=== PATIENT | male | born 1940 | race Two or more races ===

== ENCOUNTER 2023-04-19 15:34 | Inpatient (IN) | payer MEDICARE, OTHER ==
[~2023-04-19] VITALS: Ht 157.5 cm; Wt 72.1 kg
[2023-04-19] MEDS ORDERED: GABA100C PO (15:57)
[2023-04-19] MEDS ORDERED: ATOR10TA PO (15:57)
[2023-04-19] MEDS ORDERED: MEMA10TA PO (15:57)
[2023-04-19] MEDS ORDERED: NORT10CA PO (15:57)
[2023-04-19] MEDS ORDERED: BRIM10DR6 EACHEYE (15:57)
[2023-04-19] MEDS ORDERED: LOSA25TA27 PO (15:57)
[2023-04-19] MEDS ORDERED: PROP40TA7 PO (15:57)
[2023-04-19] MEDS ORDERED: METF-440 PO (15:57)
[2023-04-19 16:20] LABS: BASOPHILS # (AUTO) 0.1 K/UL (0.0-0.2); BASOPHILS % (AUTO) 2.2 % (0.0-2.0); DIFFERENTIAL COMMENT 1; EOSINOPHILS # (AUTO) 0.2 K/uL (0.0-0.7); EOSINOPHILS % (AUTO) 2.8 % (0.0-7.0); HEMATOCRIT 34.8 % (36.7-47.1); HEMOGLOBIN 11.3 g/dL (12.5-16.3); LYMPHOCYTES % (AUTO) 15.4 % (20.5-51.5); MEAN CORPUSCULAR HEMOGLOBIN 29.8 uug (23.8-33.4); MEAN CORPUSCULAR HGB CONC 33 g/dL (32.5-36.3); MEAN CORPUSCULAR VOLUME 91.8 fL (73.0-96.2); MONOCYTES # (AUTO) 0.5 K/uL (0.1-1.30); MONOCYTES % (AUTO) 8.6 % (0.0-11.0); NEUTROPHILS # (AUTO) 4.4 K/uL (1.8-8.9); PLATELET COUNT (AUTO) 193 K/uL (152-348); RED BLOOD CELL COUNT(AUTO) 3.79 MIL/uL (4.06-5.63); RED CELL DISTRIBUTION WIDTH 14.6 % (12.1-16.2); WHITE BLOOD COUNT (AUTO) 6.2 K/uL (3.6-10.2)
[2023-04-19 16:29] LABS: CALCIUM 8.2 mg/dL (8.5-10.1); CARBON DIOXIDE 27 mmol/L (21-32); CHLORIDE 109 mmol/L (98-107); CREATININE 1.3 mg/dL (0.6-1.3); GLUCOSE 150 mg/dL (74-106); POTASSIUM 4.2 mmol/L (3.5-5.1); SODIUM SERUM 139 mmol/L (136-145); UREA NITROGEN, BLOOD 25 mg/dL (7-18)
[2023-04-19 16:38] LABS: ALANINE AMINOTRANSFERASE 18 U/L (16-63); ALBUMIN 3.1 g/dL (3.4-5.0); ALKALINE PHOSPHATASE 61 U/L (50-136); ASPARTATE AMINOTRANSFERASE 12 U/L (15-37); BILIRUBIN,DIRECT 0.1 mg/dL (0.0-0.2); BILIRUBIN,TOTAL 0.3 mg/dL (0.2-1.0); TOTAL PROTEIN, SERUM 5.8 g/dL (6.4-8.2)
[2023-04-19] MEDS ORDERED: ESCI10TA PO (16:53)
[2023-04-19] MEDS ORDERED: SEMA1PEN SQ (16:53)
[2023-04-19] MEDS ORDERED: LATA7.5D EACHEYE (16:53)
[2023-04-19] MEDS ORDERED: ASPI81TA31 PO (16:53)
[2023-04-19] MEDS ORDERED: DORZ1DRO7 EACHEYE (16:53)
[2023-04-19 18:17] LABS: *BILIRUBIN,URIN NEGATIVE (NEGATIVE); *BLOOD, URINE NEGATIVE (NEGATIVE); *CLARITY,URINE CLEAR (CLEAR); *COLOR,URINE YELLOW (YELLOW); *KETONES,URINE TRACE (NEGATIVE); *PROTEIN,URINE NEGATIVE (NEGATIVE); *UROBILINOGEN,URINE 0.2 E.U./dl (NORMAL); LEUKOCYTE ESTERASE ,URINE NEGATIVE (NEGATIVE); NITRITE, URINE NEGATIVE (NEGATIVE); UGLUCOSE NEGATIVE (NEGATIVE)
[2023-04-19 18:40] LABS: RBC,URINE 0-3 /HPF (0-3)
[2023-04-19 18:41] LABS: BACTERIA,URINE FEW /HPF (NONE SEEN); SQUAMOUS EPITHELIAL CELL,UR FEW /HPF (NONE SEEN); WBC,URINE NONE SEEN /HPF (0-3)
[2023-04-19] MEDS ORDERED: REMEDY ESSENTIAL ZINC PASTE 113 GM TP PRN (19:45)
[2023-04-19] MEDS ORDERED: ACETAMINOPHEN 325 MG TABLET PO PRN (19:45)
[2023-04-19] MEDS ORDERED: IV NS 1000 ML 1,000 ML IV PRN (19:45)
[2023-04-19] MEDS ORDERED: ONDANSETRON 4 MG/2 ML VIAL IV PRN (19:45)
[2023-04-19 20:40] VITALS: BP 159/70; TEMP 98.3; O2SAT 99
[2023-04-19] MEDS ORDERED: MECLIZINE HCL 25 MG TABLET PO PRN (21:45)
[2023-04-19] MEDS: NORTRIPTYLINE HCL 25 MG CAPSULE PO SCH (22:39)
[2023-04-19] MEDS: ATORVASTATIN 40 MG TABLET PO SCH (22:39)
[2023-04-19] MEDS: PROPRANOLOL HCL 20 MG TABLET PO SCH (22:40)
[2023-04-19] MEDS: ENOXAPARIN SODIUM 40 MG/0.4 ML DISP.SYRIN SQ SCH (22:43)
[2023-04-20 04:00] VITALS: BP 155/68; TEMP 98.2; O2SAT 99
[2023-04-20] MEDS: PANTOPRAZOLE SODIUM 40 MG TABLET.DR PO SCH (06:12)
[2023-04-20 06:16] LABS: BASOPHILS % (AUTO) 0.6 % (0.0-2.0); EOSINOPHILS # (AUTO) 0.2 K/uL (0.0-0.7); EOSINOPHILS % (AUTO) 2.3 % (0.0-7.0); HEMATOCRIT 37.9 % (36.7-47.1); HEMOGLOBIN 12.7 g/dL (12.5-16.3); LYMPHOCYTES # (AUTO) 1.1 K/uL (0.8-4.8); MEAN CORPUSCULAR HEMOGLOBIN 30.1 uug (23.8-33.4); MEAN CORPUSCULAR HGB CONC 34 g/dL (32.5-36.3); MEAN CORPUSCULAR VOLUME 89.8 fL (73.0-96.2); MONOCYTES # (AUTO) 0.4 K/uL (0.1-1.30); MONOCYTES % (AUTO) 5.2 % (0.0-11.0); NEUTROPHILS # (AUTO) 6.6 K/uL (1.8-8.9); NEUTROPHILS % (AUTO) 78.9 % (38.5-71.5); PLATELET COUNT (AUTO) 119 K/uL (152-348); RED BLOOD CELL COUNT(AUTO) 4.22 MIL/uL (4.06-5.63); RED CELL DISTRIBUTION WIDTH 14.4 % (12.1-16.2); WHITE BLOOD COUNT (AUTO) 8.4 K/uL (3.6-10.2)
[2023-04-20 06:21] LABS: DIFFERENTIAL COMMENT 1
[2023-04-20 06:40] LABS: THYROID STIMULATING HORMONE 2.064 mIU/mL (0.358-3.740)
[2023-04-20 07:04] LABS: IRON, SERUM 39 ug/dL (50-175)
[2023-04-20 07:05] LABS: CALCIUM 8.8 mg/dL (8.5-10.1); CARBON DIOXIDE 27 mmol/L (21-32); CHLORIDE 108 mmol/L (98-107); CHOLESTEROL 163 mg/dL (<200); CREATININE 0.9 mg/dL (0.6-1.3); FERRITIN 44 ng/mL (26-388); GLUCOSE 128 mg/dL (74-106); HDL CHOLESTEROL 68 mg/dL (40-60); MAGNESIUM 1.5 mg/dL (1.8-2.4); PHOSPHOROUS 2.7 mg/dL (2.5-4.9); POTASSIUM 4.3 mmol/L (3.5-5.1); SODIUM SERUM 136 mmol/L (136-145); TRIGLYCERIDES 78 MG/DL (30-150); UREA NITROGEN, BLOOD 19 mg/dL (7-18)
[2023-04-20] MEDS: BRIMONIDINE 0.2% OPHT DROP 10 ML BOTTLE EACHEYE SCH ×3 (09:00→17:00)
[2023-04-20] MEDS ORDERED: SWABABLE VALVE TRANSFER SET EA MC ONE (09:27)
[2023-04-20] MEDS ORDERED: IV NORMAL SALINE 250 ML IV ONE (09:27)
[2023-04-20] MEDS ORDERED: IOHEXOL 350 100 ML INFUS..BTL ONE (09:27)
[2023-04-20 11:05] VITALS: BP 140/74; TEMP 97.6; O2SAT 100
[2023-04-20] MEDS: ESCITALOPRAM OXALATE 10 MG TABLET PO SCH (11:27)
[2023-04-20] MEDS: MEMANTINE HCL 10 MG TABLET PO SCH (11:27)
[2023-04-20] MEDS: ASPIRIN EC 81 MG TABLET.DR PO SCH (11:28)
[2023-04-20] MEDS: PROPRANOLOL HCL 20 MG TABLET PO SCH ×2 (11:28→21:18)
[2023-04-20] MEDS: MAGNESIUM SULFATE/D5W 100 ML IV SCH ×2 (11:30→12:44)
[2023-04-20] MEDS: GABAPENTIN 300 MG CAPSULE PO SCH ×2 (13:22→19:20)
[2023-04-20 15:09] VITALS: BP 144/61; TEMP 98.2; O2SAT 94
[2023-04-20] MEDS ORDERED: LATA2.5D15 EACHEYE (18:22)
[2023-04-20] MEDS ORDERED: DORZ1DRO7 EACHEYE (18:22)
[2023-04-20 20:42] VITALS: BP 118/62; TEMP 98.3; O2SAT 96
[2023-04-20] MEDS: NORTRIPTYLINE HCL 25 MG CAPSULE PO SCH (21:17)
[2023-04-20] MEDS: ATORVASTATIN 40 MG TABLET PO SCH (21:17)
[2023-04-20] MEDS: LATANOPROST OPHT DROP 2.5 ML BOTTLE EACHEYE SCH (21:18)
[2023-04-20] MEDS: DORZOLAMIDE/TIMOLOL OPHT DROP 10 ML BOTTLE EACHEYE SCH (21:19)
[2023-04-20] MEDS: ENOXAPARIN SODIUM 40 MG/0.4 ML DISP.SYRIN SQ SCH (21:29)
[2023-04-21 00:18] VITALS: BP 132/64; TEMP 98.4; O2SAT 96
[2023-04-21 04:55] VITALS: BP 162/84; TEMP 98.3; O2SAT 98
[2023-04-21] MEDS: PANTOPRAZOLE SODIUM 40 MG TABLET.DR PO SCH (06:26)
[2023-04-21 06:41] LABS: BASOPHILS % (AUTO) 0.7 % (0.0-2.0); EOSINOPHILS # (AUTO) 0.3 K/uL (0.0-0.7); EOSINOPHILS % (AUTO) 5.5 % (0.0-7.0); HEMATOCRIT 35.5 % (36.7-47.1); HEMOGLOBIN 11.8 g/dL (12.5-16.3); LYMPHOCYTES # (AUTO) 1.3 K/uL (0.8-4.8); LYMPHOCYTES % (AUTO) 24.6 % (20.5-51.5); MEAN CORPUSCULAR HEMOGLOBIN 30.3 uug (23.8-33.4); MEAN CORPUSCULAR HGB CONC 33 g/dL (32.5-36.3); MEAN CORPUSCULAR VOLUME 90.7 fL (73.0-96.2); MONOCYTES # (AUTO) 0.4 K/uL (0.1-1.30); MONOCYTES % (AUTO) 8.5 % (0.0-11.0); NEUTROPHILS # (AUTO) 3.1 K/uL (1.8-8.9); NEUTROPHILS % (AUTO) 60.7 % (38.5-71.5); PLATELET COUNT (AUTO) 177 K/uL (152-348); RED BLOOD CELL COUNT(AUTO) 3.91 MIL/uL (4.06-5.63); RED CELL DISTRIBUTION WIDTH 14.7 % (12.1-16.2); WHITE BLOOD COUNT (AUTO) 5.1 K/uL (3.6-10.2)
[2023-04-21 07:00] LABS: ALANINE AMINOTRANSFERASE 12 U/L (16-63); ALBUMIN 3.1 g/dL (3.4-5.0); ALKALINE PHOSPHATASE 50 U/L (50-136); ASPARTATE AMINOTRANSFERASE 6 U/L (15-37); BILIRUBIN,TOTAL 0.4 mg/dL (0.2-1.0); CALCIUM 8.8 mg/dL (8.5-10.1); CARBON DIOXIDE 24 mmol/L (21-32); CHLORIDE 106 mmol/L (98-107); CREATININE 0.8 mg/dL (0.6-1.3); DIFFERENTIAL COMMENT 1; GLUCOSE 118 mg/dL (74-106); MAGNESIUM 1.6 mg/dL (1.8-2.4); PHOSPHOROUS 2.9 mg/dL (2.5-4.9); POTASSIUM 4.2 mmol/L (3.5-5.1); SODIUM SERUM 138 mmol/L (136-145); TOTAL PROTEIN, SERUM 6.2 g/dL (6.4-8.2); UREA NITROGEN, BLOOD 13 mg/dL (7-18)
[2023-04-21 08:42] VITALS: BP 173/71; TEMP 97.6; O2SAT 100
[2023-04-21] MEDS: BRIMONIDINE 0.2% OPHT DROP 10 ML BOTTLE EACHEYE SCH ×3 (09:32→17:45)
[2023-04-21] MEDS: DORZOLAMIDE/TIMOLOL OPHT DROP 10 ML BOTTLE EACHEYE SCH ×2 (09:33→20:52)
[2023-04-21] MEDS: MEMANTINE HCL 10 MG TABLET PO SCH (09:33)
[2023-04-21] MEDS: ASPIRIN EC 81 MG TABLET.DR PO SCH (09:33)
[2023-04-21] MEDS: GABAPENTIN 300 MG CAPSULE PO SCH ×3 (09:34→17:45)
[2023-04-21] MEDS: ESCITALOPRAM OXALATE 10 MG TABLET PO SCH (09:34)
[2023-04-21] MEDS: PROPRANOLOL HCL 20 MG TABLET PO SCH ×2 (09:34→20:53)
[2023-04-21 11:07] VITALS: BP 158/73; TEMP 98.4; O2SAT 99
[2023-04-21] MEDS: MAGNESIUM SULFATE/D5W 100 ML IV SCH ×2 (12:12→13:35)
[2023-04-21 15:08] VITALS: BP 106/53; TEMP 97.6; O2SAT 96
[2023-04-21 20:40] VITALS: BP 140/67; TEMP 97.9; O2SAT 98
[2023-04-21] MEDS: LATANOPROST OPHT DROP 2.5 ML BOTTLE EACHEYE SCH (20:51)
[2023-04-21] MEDS: NORTRIPTYLINE HCL 25 MG CAPSULE PO SCH (20:53)
[2023-04-21] MEDS: ATORVASTATIN 40 MG TABLET PO SCH (20:53)
[2023-04-21] MEDS: ENOXAPARIN SODIUM 40 MG/0.4 ML DISP.SYRIN SQ SCH (20:55)
[2023-04-22 00:42] VITALS: BP 136/61; TEMP 97.9; O2SAT 97
[2023-04-22 04:55] VITALS: BP 153/78; TEMP 98; O2SAT 99
[2023-04-22] MEDS: PANTOPRAZOLE SODIUM 40 MG TABLET.DR PO SCH (06:46)
[2023-04-22 07:09] LABS: BASOPHILS % (AUTO) 0.6 % (0.0-2.0); EOSINOPHILS # (AUTO) 0.3 K/uL (0.0-0.7); EOSINOPHILS % (AUTO) 4.5 % (0.0-7.0); HEMATOCRIT 35.7 % (36.7-47.1); HEMOGLOBIN 11.8 g/dL (12.5-16.3); LYMPHOCYTES # (AUTO) 1.2 K/uL (0.8-4.8); LYMPHOCYTES % (AUTO) 19.1 % (20.5-51.5); MEAN CORPUSCULAR HEMOGLOBIN 29.8 uug (23.8-33.4); MEAN CORPUSCULAR HGB CONC 33 g/dL (32.5-36.3); MEAN CORPUSCULAR VOLUME 90.1 fL (73.0-96.2); MONOCYTES # (AUTO) 0.5 K/uL (0.1-1.30); MONOCYTES % (AUTO) 7.5 % (0.0-11.0); NEUTROPHILS # (AUTO) 4.3 K/uL (1.8-8.9); NEUTROPHILS % (AUTO) 68.3 % (38.5-71.5); PLATELET COUNT (AUTO) 157 K/uL (152-348); RED BLOOD CELL COUNT(AUTO) 3.96 MIL/uL (4.06-5.63); RED CELL DISTRIBUTION WIDTH 14.3 % (12.1-16.2); WHITE BLOOD COUNT (AUTO) 6.4 K/uL (3.6-10.2)
[2023-04-22 07:25] LABS: DIFFERENTIAL COMMENT 1
[2023-04-22 07:27] LABS: CALCIUM 8.7 mg/dL (8.5-10.1); CARBON DIOXIDE 27 mmol/L (21-32); CHLORIDE 105 mmol/L (98-107); CREATININE 0.9 mg/dL (0.6-1.3); GLUCOSE 137 mg/dL (74-106); POTASSIUM 4.1 mmol/L (3.5-5.1); SODIUM SERUM 139 mmol/L (136-145); UREA NITROGEN, BLOOD 14 mg/dL (7-18)
[2023-04-22 08:04] LABS: MAGNESIUM 1.5 mg/dL (1.8-2.4); PHOSPHOROUS 3.1 mg/dL (2.5-4.9)
[2023-04-22] MEDS: ASPIRIN EC 81 MG TABLET.DR PO SCH (08:26)
[2023-04-22] MEDS: MEMANTINE HCL 10 MG TABLET PO SCH (08:27)
[2023-04-22] MEDS: ESCITALOPRAM OXALATE 10 MG TABLET PO SCH (08:27)
[2023-04-22] MEDS: GABAPENTIN 300 MG CAPSULE PO SCH ×3 (08:27→16:14)
[2023-04-22] MEDS: PROPRANOLOL HCL 20 MG TABLET PO SCH (08:28)
[2023-04-22] MEDS: BRIMONIDINE 0.2% OPHT DROP 10 ML BOTTLE EACHEYE SCH ×3 (08:29→16:14)
[2023-04-22] MEDS: DORZOLAMIDE/TIMOLOL OPHT DROP 10 ML BOTTLE EACHEYE SCH (08:30)
[2023-04-22 11:42] VITALS: BP 110/56; TEMP 97.6; O2SAT 97
[2023-04-22] MEDS: MAGNESIUM OXIDE 400 MG TABLET PO SCH (11:44)
[2023-04-22 15:46] VITALS: BP 98/50; TEMP 98.6; O2SAT 98
== END 2023-04-22 19:15 | disposition home health service (06) | DRG 67 ==
LOC: ER 15:36 → TELE3 20:20 → MEDSURG3 04-22 11:00
PROVIDERS: ADMIT Nurse Practitioner Family; ATTEND Internal Medicine
DX: I65.21 Occlusion and stenosis of right carotid artery (principal); N17.0 Acute kidney failure with tubular necrosis; E44.1 Mild protein-calorie malnutrition; D68.59 Other primary thrombophilia; E11.40 Type 2 diabetes mellitus with diabetic neuropathy, unspecified; I65.8 Occlusion and stenosis of other precerebral arteries; R27.0 Ataxia, unspecified; I70.203 Unspecified atherosclerosis of native arteries of extremities, bilateral legs; E11.51 Type 2 diabetes mellitus with diabetic peripheral angiopathy without gangrene; Z79.84 Long term (current) use of oral hypoglycemic drugs; H40.9 Unspecified glaucoma; D64.9 Anemia, unspecified; E78.5 Hyperlipidemia, unspecified; Z79.899 Other long term (current) drug therapy; Z74.09 Other reduced mobility; F03.90 Unspecified dementia, unspecified severity, without behavioral disturbance, psychotic disturbance, mood disturbance, and anxiety; Z79.82 Long term (current) use of aspirin; Z91.81 History of falling; Z96.651 Presence of right artificial knee joint; Z98.49 Cataract extraction status, unspecified eye; I10 Essential (primary) hypertension
CPT/HCPCS: 36415; 70450; 70496; 71045; 82747; 83550; 83735; 84100; 84443; 84484; 85014; 85025; 93005; 93307; 93880; G0378; J1650; J3475; J7040; Q9967